=== PATIENT | female | born 1990 | race Caucasian/White ===

== ENCOUNTER 2020-10-17 08:29 | Inpatient (IN) | payer OTHER, SELFPAY ==
[2020-10-17] VITALS (21 sets, daily range): BP systolic 96–124; BP diastolic 62–94; PULSE 61–296; RESP 16; TEMP 36.6–37.2; O2SAT 100; BMI 30.8
[2020-10-17 09:18] LABS: Basophils Percent Auto 0.2 % (0.2-1.2); Eosinophils Absolute Auto 0.1 K/mm3 (0-0.3); Eosinophils Percent Auto 0.7 % (0-4.4); Hematocrit 32.7 % (37.0-47.0); Hemoglobin 11.1 g/dL (12.0-15.0); Immature Granulocyte Absolute 0.03 K/mm3 (0.00-0.031); Immature Granulocyte Percent A 0.4 % (0-0.5); Lymphocytes Absolute Auto 1.38 K/mm3 (0.9-3.2); Lymphocytes Percent Auto 16.5 % (18.3-44.2); Mean Corpuscular HGB Conc 33.9 g/dl (32-36); Mean Corpuscular Hemoglobin 31.2 pg (26-34); Mean Corpuscular Volume 91.9 fl (80-100); Mean Platelet Volume 10.3 fl (7.4-10.4); Monocytes Absolute Auto 0.5 K/mm3 (0.1-0.6); Monocytes Percent Auto 6.2 % (2.6-8.5); Neutrophils Absolute Auto 6.4 K/mm3 (1.3-6.7); Platelet Count Result 220 k/mm3 (150-375); Red Blood Count 3.56 M/mm3 (4.2-5.4); Red Cell Distribution Width 11.5 % (11.5-14.5); White Blood Count 8.4 K/mm3 (4.5-10.0)
[2020-10-17] MEDS: LACTATED RINGERS 1,000 ML 125 ML IV CONT (09:18)
[2020-10-17] MEDS: AMPICILLIN 2 GM/NS 100 ML 2 GM/100 ML BAG IVPB (09:19)
--- NOTE | 2020-10-17 09:28 | LDADM ---
This patient, Anastacia Navarro, was admitted to Labor/Delivery/Recovery 105 on 10/17/20 at 08:46. Plans for labor, pain management and were discussed with patient. Patient/family oriented to hospital policies and general routines including ID bracelet, bed and alarms, visiting hours, pain management, procedures, bathroom and other care routines, personal items, smoking policy, room service/diet and guest tray routines, security routines, and visiting hours. Patient/Family are encouraged to report perceived risks to care and to ask questions if they do not understand what they are told or what they should do. See OBIX for further documentation.
--- NOTE | 2020-10-17 09:31 | PM.IMHP ---
H&P: HPI History of Present Illness Date/Time: 10/17/20 09:31 Chief complaint: Leaking Fluid Narrative: Anastacia Navarro is a 29 year old female specimens period was 02/22/2020, EDC is 11/28/2020, confirmed by 10 week ultrasound presents at 34 weeks gestation with spontaneous rupture membranes prior to admission. Review of Systems Review of Systems: All systems reviewed & are unremarkable except as noted in HPI and below Meds Vital Signs Vital Signs - 24 hr 10/17/20 08:46 10/17/20 08:58 10/17/20 09:00 Temperature 97.8 F Pulse Rate 94 84 Blood Pressure 119/79 123/83 10/17/20 09:16 10/17/20 09:31 Temperature Pulse Rate 92 90 Blood Pressure 98/82 L 123/85 Exam Const: General: no acute distress Eyes: General: appearance normal, both eyes and all related structures Neck: Neck: supple and no JVD Thyroid: thyroid normal Resp: Effort & Inspection: normal respiratory effort Auscultation: clear to auscultation bilaterally Cardio: Rate: regular rate Rhythm: regular rhythm GI: Inspection: non-distended GI Palp: Yes Soft to palpation, No Tenderness to palpation present (GI) and No Guarding due to palpation present (GI) Auscultation: normal bowel sounds : General: Yes other ( for cervix 3 with gross rupture membranes) Speculum Exam - Vagina: normal appearance of the vagina Speculum Exam - Cervix: Other cervical findings present ( are FHTs reassuring with regular uterine contractions the) Skin: General skin exam: no rashes or lesions noted Extrem: General: normal to inspection and no edema Psych: Mental Status: mental status grossly normal Affect: normal affect H&P: Results Labs Labs: Short CBC 10/17/20 Range/Units 09:11 WBC 8.4 (4.5-10.0) K/mm3 Hgb 11.1 L (12.0-15.0) g/dL Hct 32.7 L (37.0-47.0) % Plt Count 220 (150-375) k/mm3 Assessment and Plan Additional Plan impression: 34 week with an active labor Plan: Spontaneous vaginal delivery is expected. Pediatricians were made aware. Antibiotics have been given
[2020-10-17 11:01] LABS: Rapid Plasma Reagin Non-Reactive (NonReactive)
--- NOTE | 2020-10-17 11:49 | WPDOBADMIT ---
Obstetrics - Admit Note Admission Note: record reviewed. No pertinent additions to the history and/or any subsequent changes in the physical findings that are not consistent with the expected course of the were found. Additions to the history and/or subsequent changes in the physical findings follow. None. cx 6/100/0 per rn exam fhts reassuring
[2020-10-17] MEDS: OXYTOCIN 30 UNITS/NS 500 ML 30 UNITS/500 ML BAG 999 UNITS IV CONT (12:35)
--- NOTE | 2020-10-17 12:39 | P.PCNOB_ITS ---
OB - Delivery Note Procedure Delivery date: 10/17/20 events: Premature Rupture of Membrane Intrapartal events: None Induction method: none Delivery monitor: external FHT Route of delivery: Episiotomy description: None Laceration Description: None Specimen: No Estimated blood loss (mL): 57 Anesthesia type: None Disposition: floor [facility] Baby Date of : 10/17/20 Time of : 12:30 Weeks of gestation at delivery: 34 gender: Male presentation: vertex position: Right Occiput Anterior Placenta delivery description: Spontaneous cord vessel description: 3 Vessels and Nuchal Cord
[2020-10-17] MEDS: OXYTOCIN 30 UNITS/NS 500 ML 30 UNITS/500 ML BAG 125 UNITS IV CONT (12:53)
[2020-10-18 05:49] LABS: Hematocrit 29.7 % (37.0-47.0)
--- NOTE | 2020-10-18 06:33 | P.PNOB_ITS ---
OB - PN: Subj Subjective Date/time seen: 10/18/20 06:33 Patient comments: no complaints and pain well controlled baby status: doing well and nursing well OB - PN: Obj Data Labs CBC & Chem 7: 10/18/20 04:02 Labs: Laboratory Results - last 24 hr 10/17/20 10/17/20 10/17/20 09:11 09:11 09:11 WBC 8.4 RBC 3.56 L Hgb 11.1 L Hct 32.7 L MCV 91.9 MCH 31.2 MCHC 33.9 RDW 11.5 Plt Count 220 MPV 10.3 Immature Gran % (Auto) 0.4 Neut % (Auto) 76.0 H Lymph % (Auto) 16.5 L Bollinger % (Auto) 6.2 Eos % (Auto) 0.7 Baso % (Auto) 0.2 Lymph # (Auto) 1.38 Bollinger # (Auto) 0.5 Eos # (Auto) 0.1 Baso # (Auto) 0.0 Abs Immat Gran (auto) 0.03 Absolute Neuts (auto) 6.4 Absolute Nucleated RBC 0.0 Nucleated RBC % 0.0 RPR Non-reactive Blood Type O Negative Antibody Screen Negative 10/18/20 04:02 WBC RBC Hgb 10.0 L Hct 29.7 L MCV MCH MCHC RDW Plt Count MPV Immature Gran % (Auto) Neut % (Auto) Lymph % (Auto) Bollinger % (Auto) Eos % (Auto) Baso % (Auto) Lymph # (Auto) Bollinger # (Auto) Eos # (Auto) Baso # (Auto) Abs Immat Gran (auto) Absolute Neuts (auto) Absolute Nucleated RBC Nucleated RBC % RPR Blood Type Antibody Screen OB - PN A/P Plan day: 1 Plan: routine care Time Spent With Patient Time: Total time spent is greater than 50% in coordination of care (as documented) at patient's floor/unit and/or counseling patient: Time with patient: less than 15 minutes Review of Systems Review of Systems: All systems reviewed & are unremarkable except as noted in HPI and below Exam Const: General: no acute distress Eyes: General: appearance normal, both eyes and all related structures Neck: Neck: supple and no JVD Thyroid: thyroid normal Resp: Effort & Inspection: normal respiratory effort Auscultation: clear to auscultation bilaterally Cardio: Rate: regular rate Rhythm: regular rhythm GI: Inspection: non-distended GI Palp: Yes Soft to palpation, No Tenderness to palpation present (GI) and No Guarding due to palpation present (GI) Auscultation: normal bowel sounds : General: Yes bladder normal to palpation External Female Exam: normal external appearance Speculum Exam - Vagina: normal vaginal discharge and No vaginal bleeding Speculum Exam - Cervix: nontender Bimanual exam- vagina & uterus: bladder normal to palpation and No Cervical tenderness present OB/external & speculum: No vaginal bleeding Skin: General skin exam: no rashes or lesions noted Extrem: General: normal to inspection and no edema Psych: Mental Status: mental status grossly normal Affect: normal affect
[2020-10-18 08:30] VITALS: BP 115/70; PULSE 71; RESP 16; TEMP 36.8; O2SAT 100
--- NOTE | 2020-10-18 09:30 | PC.NURSE ---
Consult with pt., discussed and initiating pumping if is not at breast. Discussed and the 34 week infant, establishing may have its own unique set of circumstances due to their immaturity. infants may be less alert, have less stamina and may have issues with latch, suck and swallow. With the possible inability to have a vigorous suck swallow, infants may not be adequately stimulating mother and/or able to have adequate milk transfer. Pumping should be considered for additional stimulation and to offer EBM as part of supplement if needed. Mother states that is why she has not put to breast and has bottle feed. Requested mother call out when ready to pump.
--- NOTE | 2020-10-18 10:30 | PC.NURSE ---
Breast pump provided due to in Level II. Instructions given on breast pump care and usage, pumping schedule, nipple care, and collection and storage of breast milk. Encouraged [id number], breast massage and manual expression to stimulate supply. Assessed patient for correct flange size, placement and draw. Patient verbalizes and demonstrates understanding of instructions.
[2020-10-18 20:00] VITALS: BP 108/64; PULSE 74; RESP 16; TEMP 36.7; O2SAT 100
--- NOTE | 2020-10-19 06:50 | PM.DS ---
DS: Admitting Diagnosis Admitting Diagnosis Admitting Diagnosis: Leaking Fluid 34 week IUP DS: Summary Time Spent with Patient Time attestation: Total time spent providing and/or coordinating discharge services: the patient was admitted with spontaneous rupture membranes at 34 weeks gestation. She underwent a spontaneous vaginal delivery which was unremarkable. Baby is presently in level 2 and doing well. She was up, ambulating, voiding, passing gas, and general without complaints. Her condition upon discharge was stable Exam Const: General: no acute distress Eyes: General: appearance normal, both eyes and all related structures Neck: Neck: supple and no JVD Thyroid: thyroid normal Resp: Effort & Inspection: normal respiratory effort Auscultation: clear to auscultation bilaterally Cardio: Rate: regular rate Rhythm: regular rhythm GI: Inspection: non-distended GI Palp: Yes Soft to palpation, No Tenderness to palpation present (GI) and No Guarding due to palpation present (GI) Auscultation: normal bowel sounds : General: Yes bladder normal to palpation External Female Exam: normal external appearance Speculum Exam - Vagina: normal vaginal discharge and No vaginal bleeding Speculum Exam - Cervix: nontender Bimanual exam- vagina & uterus: bladder normal to palpation and No Cervical tenderness present OB/external & speculum: No vaginal bleeding Skin: General skin exam: no rashes or lesions noted Extrem: General: normal to inspection and no edema Psych: Mental Status: mental status grossly normal Affect: normal affect DS: Data Data Completed and Pending Pending studies at discharge: Pending at discharge 10/18/20 07:45 Surgical [PTH] Routine Discharge Plan Discharge Attending physician on discharge: Isidro Serrato Discharging Clinician: Isidro Serrato Patient Disposition: Home, Self-Care Activity: may shower, no straining and pelvic rest Diet: heart healthy Wound Care Instructions: follow printed instructions Patient Instructions: Antibiotic Form Stand Alone Forms: General Discharge Information Follow-up/Referrals: Isidro Serrato MD [Physician] - Date of admission: 10/17/20 08:46 Primary Care Provider: PHYSICIAN,LICENSED PESTICIDE APPLICATOR Admitting Provider: Isidro Serrato Attending physician on admission: Isidro Serrato Condition: Stable
[2020-10-19 07:55] VITALS: BP 125/79; PULSE 68; RESP 18; TEMP 37.2; O2SAT 100
--- NOTE | 2020-10-19 13:30 | PC.NURSE ---
Patient instructed to view the discharge video Mother & Baby Care, The First Two Weeks . Patient was given the opportunity and encouraged to ask questions. Patient verbalized understanding of information shared and has been given the mother/baby guide for home reference.
--- NOTE | 2020-10-19 14:00 | PC.NURSE ---
Patient discharged to a no care bed. Patient will remain in room 284 while is in level II.
== END 2020-10-19 14:00 | disposition home or self-care (01) | DRG 807 ==
LOC: ANHLDR 09:12 → ANHOB2 16:05
PROVIDERS: Admitting Provider Obstetrics & Gynecology; Visit Provider Obstetrics & Gynecology
DX: O60.14X0 Preterm labor third trimester with preterm delivery third trimester, not applicable or unspecified (principal); Z37.0 Single live birth; O69.81X0 Labor and delivery complicated by cord around neck, without compression, not applicable or unspecified; Z3A.34 34 weeks gestation of pregnancy
CPT/HCPCS: 36415; 84112; 85014; 85018; 85025; 86592; 86850; 86900; 86901; 88307; A9270; J0290; J2590; J7120

== ENCOUNTER 2020-11-15 11:05 | Outpatient (RCR) | payer OTHER, SELFPAY ==
--- NOTE | 2020-11-16 10:15 | PC.NURSE ---
Addendum entered by Marialuisa Amaro RN 11/16/20 10:34: Mother verbalized understanding of all information shared. Original Note: 11/15/2020 1105 pt here for LC consult; she is requesting help with getting to latch to breast for feedings, hope to latch without nipple shield, and move to more exclusive breast feedings; currently she is pumping and bottle feeding; she reports occasionally trying to get infant to breast with and without nipple shield, but has not been successful. was born on [birth year] at 34 weeks gestation; He initially had blood sugar issues, and was in level II nursery for observation and care; he did have a short period of time on cpap. Mother did initiate pumping in preparation for breast feeding. Baby remained at [place] with mother, and was discharged home at 35 weeks gestational age. Now baby is 38 weeks gestational age. He is alert and active and appears well cared for. Mother reports she is pumping regularly, and gets 7-140cc at each pumping session. Baby currently takes about 80cc per feeding by bottle. Baby has had appropriate f/u visits with Dr. Cameron and has demonstrated appropriate growth and weight gain. Baby's next visit with Dr. Cameron is Friday, . weight - 5-4 discharge weight - 5-2 Last weight at office - Today pre-feeding weight - 6-15.7 3167 gm Post feeding - 7-4 3188 gm Baby latched to breast easily and eagerly; several attempts required, but baby able to latch, maintain latch and demonstrated vigorous, rhythmic sucking and swallowing. Mother shown how to hand express, and reverse pressure softening of areola to soften areola so that baby could latch more easily. Encouraged hand massage of breasts prior to latch as well. Assisted mother with cross-cradle position, use of c-hold and nose to nipple latch on technique, as well as how to adjust infant to deeper latch once he was one the breast. Baby nursed about 10 minutes on each side, and seemed contented after the feeding, He had a wet and small yellow stool diaper during the feeding. Mother has no c/o breast or nipple tenderness. Plan: continue putting infant to breast; if difficulty, ok to use the shield, and if still difficulty bottle feed as she has been doing. If baby nurses at the breast, OK to pump to comfort. F/U with Dr. Cameron as scheduled. Call LC office with any other questions or concerns. Mother is agreement with this plan. She stated the visit was helpful with latch on techniques.
== END 2021-01-04 08:30 | disposition home or self-care (01) ==
LOC: ANHOBOP 11:05
PROVIDERS: Visit Provider Obstetrics & Gynecology
DX: Z39.1 Encounter for care and examination of lactating mother (principal)
CPT/HCPCS: 99212; G0463